=== PATIENT | male | born 1955 | race Caucasian/White ===

== ENCOUNTER → 2020-12-03 | Outpatient (CLI) | payer OTHER ==
[~2020-12-03] MED LIST: AMLODIPINE BESY10 MG PO; ATORVASTATIN CA20 MG PO; BAYER CHEWABLE81 MG PO; CLOPIDOGREL75 MG PO; CYCLOBENZAPRINE10 MG PO; FLORANEX TABLE1 EACH PO; HYDRALAZINE HCL25 MG PO; IMDUR ER TAB 6060 MG PO; INDOCIN 50 MG C50 MG PO; LEVOTHYROXINE88 MCG PO; MELATONIN5 M2 PO; NITROGLYCERIN0.4 MG SL; PANTOPRAZOLE SO40 MG PO; VITAMIN D21250 MCG PO; XARELTO20 MG PO
== END ==
LOC: HEART CORB 10:45
DX: I25.10 Atherosclerotic heart disease of native coronary artery without angina pectoris (principal); I25.5 Ischemic cardiomyopathy; I47.2 Ventricular tachycardia; I08.1 Rheumatic disorders of both mitral and tricuspid valves
CPT/HCPCS: 93306